=== PATIENT | male | born 1965 | race Hispanic/Latino ===

== ENCOUNTER 2017-03-11 06:50 | Emergency (ER) | payer BC ==
[~2017-03-11] VITALS: Ht 162.6 cm; Wt 81.1 kg
[2017-03-11 07:34] LABS: ADD MIUA? YES; BILIRUBIN NEGATIVE; BLOOD MODERATE; COLOR YELLOW ((YELLOW)); GLUCOSE (STRIP) NEGATIVE; KETONES 5; LEUKOCYTES NEGATIVE; NITRITE NEGATIVE; PROTEIN (STRIP) NEGATIVE; SPECIFIC GRAVITY 1.017 (1.000-1.030); UROBILINOGEN 0.2 MG/DL (0.2-1.0)
[2017-03-11 07:40] LABS: BACTERIA NONE SEEN /HPF; CALCIUM OXALATE CRYSTALS 1+ /HPF; EPITHELIAL CELLS NONE SEEN /HPF; MUCUS TRACE /LPF; RED BLOOD CELLS TNTC /HPF (0-5); WHITE BLOOD CELLS 0-5 /HPF (0-5)
[2017-03-11] MEDS ORDERED: LORTAB 5-325 M1 EACH PO (10:21)
[2017-03-11] MEDS ORDERED: ZOFRAN4 MG PO (10:21)
[2017-03-11] MEDS ORDERED: MOTRIN600 MG PO (10:21)
[2017-03-11] MEDS ORDERED: FLOMAX0.4 MG PO (10:21)
[2017-03-11 10:44] VITALS: BP 161/85
== END 2017-03-11 10:44 | disposition home or self-care (01) ==
LOC: EME 06:50
PROVIDERS: Emergency Medicine
DX: N20.2 Calculus of kidney with calculus of ureter (principal)
CPT/HCPCS: 74176; 81003; 99281; 99284